=== PATIENT | female | born 1935 | race Hispanic/Latino ===

== ENCOUNTER 2017-11-29 20:10 | Inpatient (IN) | payer MEDICARE ==
[~2017-11-29] VITALS: Ht 160 cm; Wt 48.0 kg
[2017-11-29 20:40] LABS: BASOPHILS % (AUTO) 0.3 % (0.0-5.0); EOSINOPHILS % (AUTO) 0.7 % (0.0-8.0); HEMATOCRIT 30.6 % (36-48); LYMPHOCYTES % (AUTO) 9.6 % (21.0-51.0); MEAN CORPUSCULAR HEMOGLOBIN 30.9 pg (27.0-33.0); MEAN CORPUSCULAR HGB CONC 34.3 g/dL (32.0-36.0); MEAN CORPUSCULAR VOLUME 90.3 fL (79-99); MONOCYTES % (AUTO) 12.3 % (3.0-13.0); NEUTROPHILS % (AUTO) 77.1 % (40.0-77.0); PLATELET COUNT (AUTO) 217 K/uL (130-400); RED BLOOD CELL COUNT(AUTO) 3.39 MIL/uL (4.00-5.50); RED CELL DISTRIBUTION WIDTH 13.3 % (11.0-15.5); WHITE BLOOD COUNT (AUTO) 13.4 K/uL (4.8-10.8)
[2017-11-29] MEDS ORDERED: SODIUM CHLORIDE 0.9% 1000ML 1,000 ML IV ONE (20:41)
[2017-11-29 20:54] LABS: BILIRUBIN,TOTAL 0.5 mg/dL (0.2-1.0); CREATININE 1.9 mg/dL (0.5-1.5); POTASSIUM 3.1 mmol/L (3.5-5.1); TOTAL PROTEIN, SERUM 7.3 g/dL (6.0-8.3)
[2017-11-30] MEDS ORDERED: ACETAMINOPHEN-CODEINE 300/30MG TAB PO PRN (00:15)
[2017-11-30] MEDS ORDERED: ONDANSETRON HCL 4 MG/2 ML VIAL IV PRN (00:15)
[2017-11-30] MEDS ORDERED: ACETAMINOPHEN 325 MG TAB PO PRN (00:15)
[2017-11-30] MEDS ORDERED: HYDRALAZINE HCL 20 MG/ML VIAL IV PRN (00:15)
[2017-11-30] MEDS ORDERED: METRONIDAZOLE 500MG/100ML BAG 100 ML ONE (02:16)
[2017-11-30 04:00] VITALS: BP 130/63
[2017-11-30] MEDS ORDERED: SODIUM CHLORIDE 0.9% 1000ML 1,000 ML IV ONE (05:00)
[2017-11-30] MEDS ORDERED: ROSU5TAB18 PO (05:50)
[2017-11-30] MEDS ORDERED: METO50TA9 PO (05:50)
[2017-11-30] MEDS ORDERED: VALS320T15 PO (05:50)
[2017-11-30] MEDS ORDERED: DOXE45CR5 TP (05:53)
[2017-11-30 06:40] LABS: OCCULT BLOOD STOOL SINGLE ONLY POSITIVE (NEGATIVE)
[2017-11-30 07:00] VITALS: BP 119/47
[2017-11-30] MEDS: INSULIN LISPRO 100 UNIT/ML 3ML SQ SCH ×2 (07:30→21:00)
[2017-11-30] MEDS: FAMOTIDINE/PF 20 MG/2 ML VIAL IV SCH ×2 (09:20→19:54)
[2017-11-30] MEDS: METRONIDAZOLE 500MG/100ML BAG 100 ML IV SCH ×2 (09:21→20:21)
[2017-11-30 12:06] VITALS: BP 109/43
[2017-11-30 16:00] VITALS: BP 99/47
[2017-11-30 20:51] VITALS: BP 127/63
[2017-11-30 20:54] VITALS: BP 119/49
[2017-12-01 00:15] VITALS: BP 125/53
[2017-12-01 04:46] VITALS: BP 113/52
[2017-12-01] MEDS: METRONIDAZOLE 500MG/100ML BAG 100 ML IV SCH ×3 (05:42→21:45)
[2017-12-01] MEDS: INSULIN LISPRO 100 UNIT/ML 3ML SQ SCH ×4 (06:21→21:00)
[2017-12-01 06:54] LABS: BASOPHILS % (AUTO) 0.3 % (0.0-5.0); EOSINOPHILS % (AUTO) 1.9 % (0.0-8.0); LYMPHOCYTES % (AUTO) 22.4 % (21.0-51.0); MEAN CORPUSCULAR HEMOGLOBIN 31.5 pg (27.0-33.0); MEAN CORPUSCULAR HGB CONC 34.5 g/dL (32.0-36.0); MEAN CORPUSCULAR VOLUME 91.1 fL (79-99); MONOCYTES % (AUTO) 10.2 % (3.0-13.0); NEUTROPHILS % (AUTO) 65.2 % (40.0-77.0); PLATELET COUNT (AUTO) 162 K/uL (130-400); RED BLOOD CELL COUNT(AUTO) 2.74 MIL/uL (4.00-5.50); RED CELL DISTRIBUTION WIDTH 12.9 % (11.0-15.5); WHITE BLOOD COUNT (AUTO) 9.7 K/uL (4.8-10.8)
[2017-12-01 07:00] VITALS: BP 103/49
[2017-12-01 07:41] LABS: ALBUMIN 2.1 g/dL (3.5-5.0); BILIRUBIN,TOTAL 0.2 mg/dL (0.2-1.0); CREATININE 1.1 mg/dL (0.5-1.5); TOTAL PROTEIN, SERUM 5.1 g/dL (6.0-8.3)
[2017-12-01 07:45] LABS: POTASSIUM 2.2 mmol/L (3.5-5.1)
[2017-12-01] MEDS: FAMOTIDINE/PF 20 MG/2 ML VIAL IV SCH ×2 (09:41→20:46)
[2017-12-01] MEDS: SODIUM CHLORIDE 0.9% 1000ML 1,000 ML IV SCH ×2 (09:41→15:49)
[2017-12-01 11:00] VITALS: BP 122/57
[2017-12-01] MEDS ORDERED: LIDOCAINE HCL-MPF 1% 2ML VIAL ONE (12:40)
[2017-12-01] MEDS ORDERED: POTASSIUM CHLORIDE 20MEQ/100ML 100 ML IV ONE (12:41)
[2017-12-01] MEDS ORDERED: POTASSIUM CHLORIDE 20 MEQ ERTAB PO ONE (12:43)
[2017-12-01] MEDS ORDERED: LIDOCAINE HCL-MPF 1% 2ML VIAL IVP PRN (12:45)
[2017-12-01] MEDS ORDERED: POTASSIUM CHLORIDE 10% ELIXIR 20 MEQ/15 ML UDCUP PO PRN (12:45)
[2017-12-01] MEDS ORDERED: POTASSIUM CHLORIDE 20MEQ/100ML 100 ML IV PRN (12:45)
[2017-12-01 14:26] LABS: APPEARANCE,URINE CLOUDY (CLEAR); BILIRUBIN,URINE NEGATIVE (NEGATIVE); COLOR,URINE YELLOW (YELLOW); GLUCOSE, URINE (UA) 250 mg/dL (NEGATIVE); KETONES,URINE NEGATIVE (NEGATIVE); LEUKOCYTE ESTERASE ,URINE LARGE (NEGATIVE); NITRATE,URINE POSITIVE (NEGATIVE); OCCULT BLOOD,URINE SMALL (NEGATIVE); PROTEIN,URINE TRACE (NEGATIVE); UROBILINOGEN,URINE 0.2 mg/dL (0.2-1.0)
[2017-12-01 14:34] LABS: BACTERIA,URINE Many /HPF (None Seen); SQUAMOUS EPITHELIAL CELL,UR Moderate /LPF (0-2); WBC,URINE TNTC /HPF (0-1)
[2017-12-01 15:33] VITALS: BP 121/55
[2017-12-01] MEDS: POTASSIUM CHLORIDE 20 MEQ ERTAB PO PRN ×2 (15:50→17:28)
[2017-12-01 20:31] VITALS: BP 131/65
[2017-12-02] VITALS (7 sets, daily range): BP systolic 118–142; BP diastolic 58–69
[2017-12-02] MEDS: METRONIDAZOLE 500MG/100ML BAG 100 ML IV SCH ×3 (05:55→22:34)
[2017-12-02] MEDS: INSULIN LISPRO 100 UNIT/ML 3ML SQ SCH ×4 (06:07→20:51)
[2017-12-02 06:21] LABS: MAGNESIUM 0.6 mg/dL (1.80-2.40); POTASSIUM 3.4 mmol/L (3.5-5.1)
[2017-12-02] MEDS: SODIUM CHLORIDE 0.9% 1000ML 1,000 ML IV SCH ×3 (08:30→17:12)
[2017-12-02] MEDS: FAMOTIDINE/PF 20 MG/2 ML VIAL IV SCH ×2 (08:40→20:50)
[2017-12-02] MEDS: POTASSIUM CHLORIDE 20 MEQ ERTAB PO PRN ×2 (13:09→17:12)
[2017-12-02] MEDS: MAGNESIUM 2GM PREMIX 50ML 50 ML IV SCH (13:09)
[2017-12-02] MEDS ORDERED: CEFTRIAXONE 1GM/D5W 50ML 50 ML IV SCH (13:30)
[2017-12-02] MEDS: CEFTRIAXONE SODIUM 1 GM IVP SCH (17:00)
[2017-12-03 03:50] VITALS: BP 128/63
[2017-12-03 04:08] LABS: CREATININE 0.9 mg/dL (0.5-1.5); POTASSIUM 3.9 mmol/L (3.5-5.1)
[2017-12-03] MEDS: SODIUM CHLORIDE 0.9% 1000ML 1,000 ML IV SCH (04:28)
[2017-12-03] MEDS: METRONIDAZOLE 500MG/100ML BAG 100 ML IV SCH ×2 (05:52→14:09)
[2017-12-03] MEDS: INSULIN LISPRO 100 UNIT/ML 3ML SQ SCH ×2 (05:52→11:30)
[2017-12-03 08:20] VITALS: BP 134/54
[2017-12-03] MEDS ORDERED: MAGNESIUM 2GM PREMIX 50ML 50 ML IV SCH (09:15)
[2017-12-03] MEDS: MAGNESIUM 2GM PREMIX 50ML 50 ML IV SCH (10:31)
[2017-12-03] MEDS: FAMOTIDINE/PF 20 MG/2 ML VIAL IV SCH (10:32)
[2017-12-03 11:50] VITALS: BP 136/67
[2017-12-03] MEDS: CEFTRIAXONE SODIUM 1 GM IVP SCH (14:09)
== END 2017-12-03 16:15 | disposition home or self-care (01) | DRG 392 ==
LOC: EDH 20:10 → EDHIP 11-30 00:04 → 3DH 11-30 02:33 → 3AH 11-30 02:53
PROVIDERS: ADMIT Family Medicine; ATTEND Family Medicine
DX: K52.9 Noninfective gastroenteritis and colitis, unspecified (principal); N17.9 Acute kidney failure, unspecified; E44.0 Moderate protein-calorie malnutrition; E11.9 Type 2 diabetes mellitus without complications; E83.42 Hypomagnesemia; E83.52 Hypercalcemia; D72.829 Elevated white blood cell count, unspecified; N39.0 Urinary tract infection, site not specified; E86.0 Dehydration; E78.5 Hyperlipidemia, unspecified; A04.72 Enterocolitis due to Clostridium difficile, not specified as recurrent; E87.6 Hypokalemia; I10 Essential (primary) hypertension; Z85.3 Personal history of malignant neoplasm of breast; Z90.11 Acquired absence of right breast and nipple
CPT/HCPCS: 36415; 70450; 71045; 76770; 80048; 80053; 81001; 82270; 82948; 83735; 83970; 84132; 85025; 87046; 87088; 87186; 87205; 87324; 87804; 93005; A4218; J0696; J3475; J3480; J3490; J7030

== ENCOUNTER 2018-11-21 11:31 | Observation (INO) | payer MEDICARE ==
[~2018-11-21 11:31] MED LIST: DOXE45CR5 TP; METO50TA9 PO; ROSU5TAB11 PO; VALS320T16 PO
[2018-11-21 12:28] LABS: BASOPHILS % (AUTO) 0.7 % (0.0-5.0); EOSINOPHILS % (AUTO) 0.2 % (0.0-8.0); HEMATOCRIT 32.2 % (36-48); LYMPHOCYTES % (AUTO) 13.9 % (21.0-51.0); MEAN CORPUSCULAR HEMOGLOBIN 29.1 pg (27.0-33.0); MEAN CORPUSCULAR HGB CONC 32.8 g/dL (32.0-36.0); MEAN CORPUSCULAR VOLUME 88.7 fL (79-99); MONOCYTES % (AUTO) 4.9 % (3.0-13.0); NEUTROPHILS % (AUTO) 80.3 % (40.0-77.0); PLATELET COUNT (AUTO) 230 K/uL (130-400); RED BLOOD CELL COUNT(AUTO) 3.63 MIL/uL (4.00-5.50); RED CELL DISTRIBUTION WIDTH 12.7 % (11.0-15.5); WHITE BLOOD COUNT (AUTO) 12.5 K/uL (4.8-10.8)
[2018-11-21 12:41] LABS: CREATININE 1.3 mg/dL (0.5-1.5); POTASSIUM 4.8 mmol/L (3.5-5.1)
[2018-11-21 12:44] LABS: INR 1.23 (0.85-1.15); PARTIAL THROMBOPLASTIN TIME 34.2 SEC (26.3-35.5); PROTHROMBIN TIME 12.9 SEC (9.6-11.6)
[2018-11-21 12:48] LABS: ALBUMIN 3.4 g/dL (3.5-5.0); BILIRUBIN,TOTAL 0.3 mg/dL (0.2-1.0); TOTAL PROTEIN, SERUM 8.4 g/dL (6.0-8.3)
[2018-11-21] MEDS ORDERED: ACETAMINOPHEN 325 MG TAB PO PRN (14:30)
[2018-11-21] MEDS ORDERED: LEVOFLOXACIN 500 MG/D5W 100 ML 100 ML IV SCH (14:30)
[2018-11-21] MEDS ORDERED: ONDANSETRON HCL 4 MG/2 ML VIAL IV PRN (14:30)
[2018-11-21] MEDS ORDERED: LACTULOSE 20 GM/30 ML UDCUP PO PRN (14:30)
[2018-11-21] MEDS ORDERED: LEVOFLOXACIN 500 MG TABLET ONE (14:35)
[2018-11-21] MEDS ORDERED: SODIUM CHLORIDE 0.9% 50 ML IV ONE (14:35)
[2018-11-21] MEDS ORDERED: CEFTRIAXONE SODIUM 1 GM ONE (14:35)
[2018-11-21] MEDS: INSULIN HUMULIN R 100 UNIT/ML 3ML SQ SCH ×2 (16:30→20:44)
[2018-11-21 16:40] VITALS: BP 136/71
[2018-11-21 19:00] VITALS: BP 104/59
[2018-11-21] MEDS: FAMOTIDINE 20MG TAB 20 MG TAB PO SCH (20:43)
[2018-11-21] MEDS: DOCUSATE SODIUM 100 MG CAP PO SCH (20:43)
[2018-11-21] MEDS: METOPROLOL TARTRATE 25 MG TAB PO SCH (20:44)
[2018-11-21] MEDS ORDERED: ATORVASTATIN CALCIUM 10 MG TABLET PO SCH (21:00)
[2018-11-21 23:00] VITALS: BP 112/49
[2018-11-22 03:00] VITALS: BP 109/58
[2018-11-22 06:10] LABS: BASOPHILS % (AUTO) 0.5 % (0.0-5.0); EOSINOPHILS % (AUTO) 0.7 % (0.0-8.0); HEMATOCRIT 28.4 % (36-48); LYMPHOCYTES % (AUTO) 24.7 % (21.0-51.0); MEAN CORPUSCULAR HEMOGLOBIN 29.3 pg (27.0-33.0); MEAN CORPUSCULAR HGB CONC 33.2 g/dL (32.0-36.0); MEAN CORPUSCULAR VOLUME 88.1 fL (79-99); NEUTROPHILS % (AUTO) 64.1 % (40.0-77.0); PLATELET COUNT (AUTO) 192 K/uL (130-400); RED BLOOD CELL COUNT(AUTO) 3.23 MIL/uL (4.00-5.50); RED CELL DISTRIBUTION WIDTH 12.7 % (11.0-15.5)
[2018-11-22] MEDS: INSULIN HUMULIN R 100 UNIT/ML 3ML SQ SCH ×3 (06:11→16:30)
[2018-11-22 06:26] LABS: ALBUMIN 2.7 g/dL (3.5-5.0); BILIRUBIN,TOTAL 0.3 mg/dL (0.2-1.0); CREATININE 1.2 mg/dL (0.5-1.5); POTASSIUM 3.6 mmol/L (3.5-5.1); TOTAL PROTEIN, SERUM 7.4 g/dL (6.0-8.3)
[2018-11-22 08:00] VITALS: BP 107/58
[2018-11-22] MEDS ORDERED: POLYETHYLENE GLYCOL 3350 17 GM POWD.PACK PO SCH (09:00)
[2018-11-22] MEDS ORDERED: ENOXAPARIN SODIUM 30 MG/0.3 ML SQ SCH (09:00)
[2018-11-22] MEDS ORDERED: LOSARTAN 100 MG TABLET PO SCH (09:00)
[2018-11-22] MEDS: DOCUSATE SODIUM 100 MG CAP PO SCH (09:39)
[2018-11-22] MEDS: METOPROLOL TARTRATE 25 MG TAB PO SCH (09:39)
[2018-11-22] MEDS: FAMOTIDINE 20MG TAB 20 MG TAB PO SCH (09:39)
[2018-11-22 12:00] VITALS: BP 92/45
[2018-11-22] MEDS ORDERED: LEVO250S3 PO (14:19)
[2018-11-22] MEDS ORDERED: DOCU-116 PO (14:19)
[2018-11-22 16:00] VITALS: BP 125/45
== END 2018-11-22 18:45 | disposition home or self-care (01) ==
LOC: EDH 11:31 → EDHIP 14:17 → INTOOBSV 14:17 → 3CH 16:12
PROVIDERS: ADMIT Hospitalist; ATTEND Hospitalist
DX: J90 Pleural effusion, not elsewhere classified (principal); K59.00 Constipation, unspecified; I10 Essential (primary) hypertension; D25.9 Leiomyoma of uterus, unspecified; D72.829 Elevated white blood cell count, unspecified; E11.65 Type 2 diabetes mellitus with hyperglycemia; E78.5 Hyperlipidemia, unspecified; J47.9 Bronchiectasis, uncomplicated; J98.11 Atelectasis; K80.20 Calculus of gallbladder without cholecystitis without obstruction; Z90.11 Acquired absence of right breast and nipple
CPT/HCPCS: 36415 ×2; 71045; 74176; 80053 ×2; 82270; 82550; 82948 ×5; 83605; 83690; 83880; 84484; 85025 ×2; 85610; 85730; 87040; 93005; 96372 ×2; 99284; G0378 ×28; J0696; J1650; J1815

== ENCOUNTER 2020-07-16 13:26 | Emergency (ER) | payer MEDICARE ==
[~2020-07-16 13:26] MED LIST changes: +DOCU-116 PO; +LEVO250S3 PO; -ROSU5TAB11 PO; +ROSU5TAB12 PO
[2020-07-16] MEDS ORDERED: TETANUS/DIPHTHERIA TOXOID [ADULT] 0.5 ML VIAL IM ONE (13:54)
[2020-07-16] MEDS ORDERED: LIDOCAINE HCL-MPF 1% 2ML VIAL ONE (15:17)
== END 2020-07-16 16:01 | disposition home or self-care (01) ==
LOC: EDH 13:26
DX: S01.91XA Laceration without foreign body of unspecified part of head, initial encounter (principal); E11.9 Type 2 diabetes mellitus without complications; E78.5 Hyperlipidemia, unspecified; I10 Essential (primary) hypertension; W18.39XA Other fall on same level, initial encounter; Y93.01 Activity, walking, marching and hiking; Y92.89 Other specified places as the place of occurrence of the external cause; Y99.8 Other external cause status
CPT/HCPCS: 12001; 70450; 72125; 90471; 90714; 99285; J3490

== ENCOUNTER 2021-11-04 10:34 | Emergency (ER) | payer MEDICARE ==
[~2021-11-04] VITALS: Ht 149.9 cm; Wt 45.4 kg
[2021-11-04 10:58] LABS: APPEARANCE,URINE CLOUDY (CLEAR); BILIRUBIN,URINE NEGATIVE (NEGATIVE); COLOR,URINE YELLOW (YELLOW); GLUCOSE, URINE (UA) NEGATIVE (NEGATIVE); KETONES,URINE NEGATIVE (NEGATIVE); LEUKOCYTE ESTERASE ,URINE SMALL (NEGATIVE); NITRATE,URINE POSITIVE (NEGATIVE); OCCULT BLOOD,URINE MODERATE (NEGATIVE); PH,URINE 7.5 (5.0-8.0); PROTEIN,URINE TRACE mg/dL (NEGATIVE)
[2021-11-04 11:00] LABS: BASOPHILS % (AUTO) 0.5 % (0.0-5.0); EOSINOPHILS % (AUTO) 0.7 % (0.0-8.0); HEMATOCRIT 38.1 % (36-48); LYMPHOCYTES % (AUTO) 29.2 % (21.0-51.0); MEAN CORPUSCULAR HGB CONC 29.9 g/dL (32.0-36.0); MEAN CORPUSCULAR VOLUME 96.9 fL (79-99); MONOCYTES % (AUTO) 6.5 % (3.0-13.0); NEUTROPHILS % (AUTO) 62.9 % (40.0-77.0); PLATELET COUNT (AUTO) 149 K/uL (130-400); RED BLOOD CELL COUNT(AUTO) 3.93 MIL/uL (4.00-5.50); RED CELL DISTRIBUTION WIDTH 12.1 % (11.0-15.5); WHITE BLOOD COUNT (AUTO) 6.1 K/uL (4.8-10.8)
[2021-11-04] MEDS ORDERED: HYDROCODONE/ACETAMINOPHEN 5/325 MG TAB PO ONE (11:00)
[2021-11-04] MEDS ORDERED: KETOROLAC 15MG/ML VIAL (15MG/ML) IV ONE (11:00)
[2021-11-04 11:07] LABS: POTASSIUM 4.5 mmol/L (3.5-5.1)
[2021-11-04 11:11] LABS: BACTERIA,URINE Many /HPF (None Seen); CALCIUM OXALATE CRYSTALS,UR Few /LPF (None Seen)
[2021-11-04 11:12] LABS: BILIRUBIN,TOTAL 0.5 mg/dL (0.2-1.0); TOTAL PROTEIN, SERUM 8.4 g/dL (6.0-8.3)
[2021-11-04] MEDS ORDERED: CEPH500B PO (12:24)
[2021-11-04] MEDS ORDERED: CEFTRIAXONE 1G VIAL IVP ONE (12:30)
[2021-11-04 13:04] VITALS: BP 143/63
== END 2021-11-04 13:11 | disposition home or self-care (01) ==
LOC: EDH 10:34
DX: N12 Tubulo-interstitial nephritis, not specified as acute or chronic (principal); E78.00 Pure hypercholesterolemia, unspecified; I11.9 Hypertensive heart disease without heart failure; Z79.1 Long term (current) use of non-steroidal anti-inflammatories (NSAID); Z79.899 Other long term (current) drug therapy
CPT/HCPCS: 36415; 71045; 80053; 81001; 85025; 87077; 87088; 87186; 93005; 96374; 96375; 99285; J0696; J1885